=== PATIENT | female | born 1985 | race Asian ===

== ENCOUNTER 2020-08-09 04:49 | Emergency (ER) | payer OTHER ==
[~2020-08-09] VITALS: Ht 162.6 cm; Wt 79.4 kg
[2020-08-09 04:57] VITALS: BP_SYST 155
--- NOTE | 2020-08-09 05:14 | NUR ---
ER at bedside examining patient.
[2020-08-09] MEDS ORDERED: ASPIRIN 81 MG TAB.CHEW PO ONE (05:15)
[2020-08-09] MEDS ORDERED: hydrALAZINE HCL 20 MG/ML VIAL IVP ONE (05:30)
[2020-08-09 07:21] LABS: BASOPHILS # (AUTO) 0.1 K/uL (0.0-0.2); BASOPHILS % (AUTO) 0.8 % (0.0-2.0); EOSINOPHILS # (AUTO) 0.1 K/uL (0.0-0.4); EOSINOPHILS % (AUTO) 0.8 % (0.0-4.0); HEMATOCRIT 41.3 % (36-48); HEMOGLOBIN 13.2 g/dL (12.0-16.0); LYMPHOCYTES # (AUTO) 2.3 K/uL (1.0-5.5); LYMPHOCYTES % (AUTO) 28.1 % (20.5-51.5); MEAN CORPUSCULAR HEMOGLOBIN 22 pg (27-31); MEAN CORPUSCULAR HGB CONC 32 % (32-36); MEAN CORPUSCULAR VOLUME 67 fL (79.0-98.0); MONOCYTES # (AUTO) 0.3 K/uL (0.0-1.0); MONOCYTES % (AUTO) 3.3 % (1.7-9.3); NEUTROPHILS # (AUTO) 5.5 K/uL (1.8-7.7); PLATELET COUNT (AUTO) 383 K/uL (130-430); RED BLOOD CELL COUNT(AUTO) 6.13 MIL/uL (4.2-6.2); RED CELL DISTRIBUTION WIDTH 14.5 % (9.0-15.0); WHITE BLOOD COUNT (AUTO) 8.2 K/uL (4.8-10.8)
--- NOTE | 2020-08-09 07:37 | NUR ---
Placed in room 04 . Placed on secured entrance monitor, blood pressure machine and pulse oximeter. To gown for exam. Side rails up.
[2020-08-09 07:38] LABS: CALCIUM 9.1 mg/dL (8.4-11.0); CREATININE 0.79 mg/dL (0.55-1.30); POTASSIUM 3.9 mmol/L (3.5-5.1)
[2020-08-09 07:42] LABS: ALBUMIN 4.2 g/dL (3.4-4.8); TOTAL BILIRUBIN 0.3 mg/dL (0.0-1.0)
--- NOTE | 2020-08-09 07:50 | NUR ---
Pt walked in to ER with c/o chest pain since last night, was 7/10, denies pain now. Reports h/o HTN. V/S stable, pt is afebrile. Currently resting in bed, no distress noted.
--- NOTE | 2020-08-09 08:00 | NUR ---
ER Dr. Green at bedside examining patient.
[2020-08-09 08:26] LABS: BILIRUBIN,URINE NEGATIVE (NEGATIVE); BLOOD, URINE NEGATIVE (NEGATIVE); CLARITY/URINE CLEAR (CLEAR); COLOR,URINE YELLOW (YELLOW); GLUCOSE,URINE NEGATIVE (NEGATIVE); KETONES,URINE NEGATIVE (NEGATIVE); LEUKOCYTE ESTERASE ,URINE NEGATIVE (NEGATIVE); NITRITE, URINE NEGATIVE (NEGATIVE); PROTEIN URINE NEGATIVE (NEGATIVE); UROBILINOGEN,URINE 0.2 (0.2-1.0)
--- NOTE | 2020-08-09 08:31 | NUR ---
Pt blood pressure 127/94, per Dr. Green, hold hydralazine.
[2020-08-09] MEDS ORDERED: ASPIRIN 81 MG TAB.CHEW ONE (09:20)
[2020-08-09 09:50] VITALS: BP_SYST 127
--- NOTE | 2020-08-09 10:04 | NUR ---
Patient given written and verbal discharge instructions and verbalizes understanding. ER MD discussed with patient the results and treatment provided. Patient in stable condition. ID arm band removed. No Rx given. Patient educated on pain management and to follow up with PMD. Pain Scale0/10 Opportunity for questions provided and answered. Medication side effect fact sheet provided.
== END 2020-08-09 10:04 | disposition home or self-care (01) ==
LOC: SED 04:49
DX: R07.9 Chest pain, unspecified (principal); I16.0 Hypertensive urgency
CPT/HCPCS: 36415; 71045; 80053; 81003; 82550-TC; 83880; 84484; 85025; 85379; 93005; 99285

== ENCOUNTER 2021-05-28 20:16 | Emergency (ER) | payer OTHER ==
[~2021-05-28] VITALS: Ht 162.6 cm; Wt 77.1 kg
[2021-05-28 20:32] VITALS: BP_SYST 137
[2021-05-28 21:31] LABS: HCG,QUAL RESULT NEGATIVE (NEGATIVE)
[2021-05-28 22:06] LABS: BILIRUBIN,URINE NEGATIVE (NEGATIVE); BLOOD, URINE NEGATIVE (NEGATIVE); CLARITY/URINE CLEAR (CLEAR); COLOR,URINE YELLOW (YELLOW); GLUCOSE,URINE NEGATIVE (NEGATIVE); KETONES,URINE NEGATIVE (NEGATIVE); LEUKOCYTE ESTERASE ,URINE NEGATIVE (NEGATIVE); NITRITE, URINE NEGATIVE (NEGATIVE); PROTEIN URINE NEGATIVE (NEGATIVE); UROBILINOGEN,URINE 0.2 (0.2-1.0)
[2021-05-29 02:36] LABS: CREATININE 0.79 mg/dL (0.55-1.30); POTASSIUM 3.7 mmol/L (3.5-5.1)
[2021-05-29 02:39] LABS: ALBUMIN 3.8 g/dL (3.4-4.8); TOTAL BILIRUBIN 0.4 mg/dL (0.0-1.0)
[2021-05-29 02:45] LABS: BASOPHILS # (AUTO) 0.1 K/uL (0.0-0.2); BASOPHILS % (AUTO) 0.9 % (0.0-2.0); EOSINOPHILS # (AUTO) 0.1 K/uL (0.0-0.4); EOSINOPHILS % (AUTO) 1.7 % (0.0-4.0); HEMATOCRIT 34.2 % (36-48); HEMOGLOBIN 10.6 g/dL (12.0-16.0); LYMPHOCYTES # (AUTO) 2.9 K/uL (1.0-5.5); LYMPHOCYTES % (AUTO) 34.6 % (20.5-51.5); MEAN CORPUSCULAR HEMOGLOBIN 21 pg (27-31); MEAN CORPUSCULAR HGB CONC 31 % (32-36); MEAN CORPUSCULAR VOLUME 67 fL (79.0-98.0); MONOCYTES # (AUTO) 0.5 K/uL (0.0-1.0); MONOCYTES % (AUTO) 5.8 % (1.7-9.3); NEUTROPHILS # (AUTO) 4.8 K/uL (1.8-7.7); PLATELET COUNT (AUTO) 381 K/uL (130-430); RED BLOOD CELL COUNT(AUTO) 5.09 MIL/uL (4.2-6.2); RED CELL DISTRIBUTION WIDTH 19.6 % (9.0-15.0); WHITE BLOOD COUNT (AUTO) 8.4 K/uL (4.8-10.8)
[2021-05-29] MEDS ORDERED: KETOROLAC TROMETHAMINE 30 MG VIAL IVP ONE (04:15)
[2021-05-29] MEDS ORDERED: NAPR-688 PO (06:04)
[2021-05-29 06:30] VITALS: BP_SYST 136
== END 2021-05-29 06:30 | disposition home or self-care (01) ==
LOC: SED 20:16
DX: R10.2 Pelvic and perineal pain (principal); I10 Essential (primary) hypertension; Z79.899 Other long term (current) drug therapy
CPT/HCPCS: 36415; 74018; 76830; 76857; 80053; 81003; 84703; 85025; 96374; 99285; J1885

== ENCOUNTER 2022-08-30 13:40 | Emergency (ER) | payer BC, OTHER ==
[~2022-08-30] VITALS: Ht 162.6 cm; Wt 78.5 kg
[~2022-08-30 13:40] MED LIST: NAPR-688 PO
[2022-08-30 13:49] VITALS: BP_SYST 123
[2022-08-30] MEDS ORDERED: AMOXICILLIN/POTASSIUM CLAV 875 MG TABLET PO ONE (15:00)
[2022-08-30] MEDS ORDERED: KETOROLAC TROMETHAMINE 30 MG VIAL IM ONE (15:00)
[2022-08-30] MEDS ORDERED: METOCLOPRAMIDE HCL 10 MG TABLET PO ONE (15:00)
[2022-08-30] MEDS ORDERED: ACETAMINOPHEN 500 MG TABLET PO ONE (15:00)
--- NOTE | 2022-08-30 15:02 | NUR ---
Note rebecca in EDM - 08/30/22 at 1643 by [email or web address] Patient given written and verbal discharge instructions and verbalizes understanding. ER discussed with patient the results and treatment provided. Patient in stable condition. ID arm band removed. Rx of augmentin and ibuprofen given. Patient educated on pain management and to follow up with PMD. Pain Scale 0/10 Opportunity for questions provided and answered. Medication side effect fact sheet provided.
[2022-08-30] MEDS ORDERED: IBUP-1969 PO (16:02)
[2022-08-30] MEDS ORDERED: AUG875 PO (16:02)
--- NOTE | 2022-08-30 16:37 | NUR ---
COVID AND FLU SWAB COLLECTED AND SENT TO LAB
[2022-08-30 16:48] VITALS: BP_SYST 116
--- NOTE | 2022-08-30 16:48 | NUR ---
Patient given written and verbal discharge instructions and verbalizes understanding. ER MD discussed with patient the results and treatment provided. Patient in stable condition. ID arm band removed. Rx of augmentin and ibuprofen given. Patient educated on pain management and to follow up with PMD. Pain Scale 0/10 Opportunity for questions provided and answered. Medication side effect fact sheet provided.
== END 2022-08-30 16:48 | disposition home or self-care (01) ==
LOC: SED 13:40
DX: H66.92 Otitis media, unspecified, left ear (principal); J01.90 Acute sinusitis, unspecified; R51.9 Headache, unspecified; R50.9 Fever, unspecified; R09.81 Nasal congestion; I10 Essential (primary) hypertension; Z79.899 Other long term (current) drug therapy; Z20.822 Contact with and (suspected) exposure to COVID-19
CPT/HCPCS: 99283; 87426; 36415; 96372; 87804 ×2; J8597; J1885